=== PATIENT | female | born 1930 | race Two or more races ===

== ENCOUNTER 2017-05-14 12:06 | Inpatient (IN) | payer BC, MEDICAID ==
[~2017-05-14] VITALS: Ht 162.6 cm; Wt 72.1 kg
[~2017-05-14 12:06] MED LIST: AMIO200T2 PO; ASPI-991 PO; FLUT16SP16 NS; LISI10TA59 PO; METO25TA20 PO; Nitroglycerin TP; PANT40TA2 PO; Rivaroxaban PO; SIMV10TA6 PO
--- NOTE | 2017-05-14 12:15 | NUR ---
PT BIB [facility] FROM HOME, SUDDEN ONSET OF CP RADIATES TO BACK AND LEFT ARM AT 6/10. AAOX3. NOTED ANXIOUS. DTR AT BS FOR INFO. HR ELEVATED, OTHER VSS. SAFETY AND COMFORT MEASURES PROVIDED. SEEN BY MD FOR EVAL. WILL MONITOR.
[2017-05-14] MEDS ORDERED: DILTIAZEM HCL 25 MG IV ONE ×2 (12:22→12:46)
[2017-05-14 12:29] LABS: BASOPHILS % (AUTO) 0.7 % (0.0-2.0); EOSINOPHILS # (AUTO) 0.1 /CMM (0.0-0.7); EOSINOPHILS % (AUTO) 1.7 % (0.0-6.0); HEMATOCRIT 33 % (33-45); HEMOGLOBIN 11.2 g/dL (11.5-14.8); LYMPHOCYTES # (AUTO) 2.2 /CMM (0.8-4.8); LYMPHOCYTES % (AUTO) 31.4 % (20.0-44.0); MEAN CORPUSCULAR HEMOGLOBIN 28 PG (26.0-33.0); MEAN CORPUSCULAR HGB CONC 34 g/dl (31.0-36.0); MEAN CORPUSCULAR VOLUME 83 fL (82-100); MONOCYTES # (AUTO) 0.5 /CMM (0.1-1.30); MONOCYTES % (AUTO) 6.8 % (2.0-12.0); NEUTROPHILS # (AUTO) 4.1 /CMM (1.8-8.9); NEUTROPHILS % (AUTO) 59.4 % (43.0-81.0); PLATELET COUNT (AUTO) 266 /CMM (150-450); RDW COEFFICIENT OF VARIATION 15.2 (11.5-15.0); RED BLOOD CELL COUNT(AUTO) 3.98 MIL/uL (4.0-5.2); WHITE BLOOD COUNT (AUTO) 6.9 K/uL (4.3-11.0)
[2017-05-14] MEDS ORDERED: DILTIAZEM HCL 25 MG IV IV ONE ×2 (12:30→13:00)
--- NOTE | 2017-05-14 12:39 | NUR ---
PT MEDICATED ORDERED.
--- NOTE | 2017-05-14 12:39 | NUR ---
CXRAY DONE AT BS.
[2017-05-14 12:42] LABS: CALCIUM, SERUM 9.1 mg/dL (8.5-10.1); CARBON DIOXIDE 26 mmol/L (21-32); CHLORIDE 103 mmol/L (98-107); CREATININE 1.5 mg/dL (0.6-1.3); GLUCOSE 102 mg/dL (74-106); POTASSIUM 3.9 mmol/L (3.5-5.1); SODIUM SERUM 141 mmol/L (136-145); UREA NITROGEN, BLOOD 34 mg/dL (7-18)
[2017-05-14] MEDS ORDERED: THYR15TA PO (12:42)
[2017-05-14] MEDS ORDERED: SIMV10TA6 PO (12:42)
[2017-05-14] MEDS ORDERED: METO25TA6 PO (12:42)
[2017-05-14] MEDS ORDERED: FURO40TA5 PO (12:42)
[2017-05-14] MEDS ORDERED: LISI40TA4 PO (12:42)
[2017-05-14] MEDS ORDERED: AMIO200T2 PO (12:42)
[2017-05-14] MEDS ORDERED: HYDR-4076 PO (12:42)
[2017-05-14 12:48] LABS: ALANINE AMINOTRANSFERASE 18 U/L (12-78); ALBUMIN 3.3 g/dL (3.4-5.0); ALKALINE PHOSPHATASE 96 U/L (46-116); ASPARTATE AMINOTRANSFERASE 22 U/L (15-37); BILIRUBIN,DIRECT 0.1 mg/dL (0.0-0.2); BILIRUBIN,TOTAL 0.4 mg/dL (0.2-1.0)
[2017-05-14 12:50] LABS: PROTHROMBIN TIME 10.7 SECS (9.5-12.7); TROPONIN I 0.018 ng/mL (0.00-0.056)
--- NOTE | 2017-05-14 13:23 | NUR ---
REPORT GIVEN TO LINDA COLEMAN FOR TELE 104
[2017-05-14 13:30] VITALS: BP 129/66
--- NOTE | 2017-05-14 13:45 | NUR ---
RN NOTES ADMITTED A 86Y/O F FROM ER WITH DX OF CHEST PAIN. PT IS AWAKE ALERT ORIENTEDX3 ABLE TO COMMUNICATE NEEDS IN BULGARIAN. DAUGHTER AT BEDSIDE FOR TRANSLATION. PT ON RA KEREN WELL, TELEBOX ATTACHED, VS TAKEN AND RECORDED. BODYCHECK DONE NO MAJOR SKIN ISSUE NOTED. PT DENIES PAIN/DISCOMFORT AT THIS TIME. DENIES CHEST PAIN AT THIS TIME. ORIENTED PT TO UNIT AND CALL LIGHT USE. SAFETY MAINTAINED,NEEDS ATTENDED.CALL LIGHT WITHIN REACH.
--- NOTE | 2017-05-14 14:15 | NUR ---
RN NOTES FOLLOWEDUPWITH DR COOMBS ADMISSION ORDERS
[2017-05-14] MEDS ORDERED: Z GUARD REMEDY 2 OZ OINT TP PRN (15:00)
[2017-05-14] MEDS ORDERED: AMIODARONE HCL 200 MG TABLET PO SCH (15:00)
[2017-05-14] MEDS ORDERED: ACETAMINOPHEN 325 MG TABLET PO PRN (15:00)
[2017-05-14] MEDS ORDERED: ONDANSETRON HCL/PF 4 MG/2 ML VIAL IVP PRN (15:00)
[2017-05-14 16:00] VITALS: BP 145/65
[2017-05-14] MEDS ORDERED: IV SET PRIMARY PUMP SET 1 EA INFUS.SET MC ONE (17:19)
[2017-05-14] MEDS: IV NS 0.9% 1,000 ML IV PRN (17:28)
[2017-05-14] MEDS: FUROSEMIDE 40 MG TABLET PO SCH (17:28)
[2017-05-14] MEDS: METOPROLOL TARTRATE 25 MG TABLET PO SCH (17:29)
[2017-05-14] MEDS: AMIODARONE HCL 200 MG TABLET PO SCH (17:29)
[2017-05-14] MEDS: hydrALAZINE HCL 25 MG TABLET PO SCH (17:30)
[2017-05-14] MEDS: RIVAROXABAN 15 MG TABLET PO SCH (17:30)
--- NOTE | 2017-05-14 19:30 | NUR ---
TELERN FULLY AWAKE, TOGOLESE SPEAKING, FAMILY AT BEDSIDE VERY SUPPORTIVE. FAMILYS' CONCERNS REGARDING PATIENT S' INABLILITY TO SLEEP AT NIGHT. STATED WAS PRESCRIBED FORM ANOTHER HOSPITAL AMBIEN, WHICH DOES NOT HELP THE PATIENT SECONDARY TO ARTHRITIC PAIN? REVIEWED MED LIST WITH FAMILY APPEARS TO UNDERSTAND. REQUESTED TO ASK MD FOR STRONGER PAIN MED FOR PATIENT'S ARTHRITIC PAIN AND INSOMNIA. WILL CALL MD... WILL FOLLOW UP... REMAINS SR ON THE MONITOR, SAFETY PRECAUTIONS EMPHASIZED TRANSLATED IN TOGOLESE TO PATIENT. ENCOURAGED TO CALL FOR ANY ASSISTANCE OR DISCOMFORTS. CALL LIGHT WITHIN REACH.CONTINUED MONITORING. CLOSELY WATCHED.
[2017-05-14 20:00] VITALS: BP 105/53
[2017-05-14] MEDS ORDERED: HYDROCODONE/APAP 5/325MG 1 EACH TABLET PO PRN (21:30)
[2017-05-14] MEDS: SIMVASTATIN 10 MG TABLET PO SCH (22:15)
--- NOTE | 2017-05-14 22:17 | NUR ---
TELERN DUE MEDS GIVEN. OFFERED TYLENOL REFUSED TO TAKE ANY PAIN MED. STATED SHE IS NOT ON ANY TYPE OF PAIN, PER RE EXAMINER. WILL CALL IF IN PAIN. VOIDED, BRP WITH STANDBY ASSIST. PRESENT IVF INFUSING WELL.
[2017-05-15] VITALS (8 sets, daily range): BP systolic 120–174; BP diastolic 61–68
--- NOTE | 2017-05-15 04:15 | NUR ---
TELERN SLEPT WELL THROUGHOUT THE NIGHT. IVF CONTINUED. REMAINS SR ON THE MONITOR
--- NOTE | 2017-05-15 06:12 | NUR ---
TELERN ASSISTED TO RESTROOM, VOIDED FREELY. BED SCALE WEIGHT WAS 159.5 LBS.
[2017-05-15 06:59] LABS: BASOPHILS % (AUTO) 0.4 % (0.0-2.0); EOSINOPHILS # (AUTO) 0.2 /CMM (0.0-0.7); EOSINOPHILS % (AUTO) 2.7 % (0.0-6.0); HEMATOCRIT 33 % (33-45); HEMOGLOBIN 10.9 g/dL (11.5-14.8); LYMPHOCYTES # (AUTO) 1.9 /CMM (0.8-4.8); LYMPHOCYTES % (AUTO) 29.1 % (20.0-44.0); MEAN CORPUSCULAR HEMOGLOBIN 28 PG (26.0-33.0); MEAN CORPUSCULAR HGB CONC 33 g/dl (31.0-36.0); MEAN CORPUSCULAR VOLUME 85 fL (82-100); MONOCYTES # (AUTO) 0.4 /CMM (0.1-1.30); MONOCYTES % (AUTO) 6.5 % (2.0-12.0); NEUTROPHILS # (AUTO) 4.1 /CMM (1.8-8.9); NEUTROPHILS % (AUTO) 61.3 % (43.0-81.0); PLATELET COUNT (AUTO) 244 /CMM (150-450); RDW COEFFICIENT OF VARIATION 16.4 (11.5-15.0); RED BLOOD CELL COUNT(AUTO) 3.89 MIL/uL (4.0-5.2); WHITE BLOOD COUNT (AUTO) 6.7 K/uL (4.3-11.0)
--- NOTE | 2017-05-15 07:00 | NUR ---
RN NOTES: RECEIVED PATIENT IN BED AWAKE,ALERT AND ORIENTED VERBALLY ABLE TO COMMUNICATE NEED, FOLLOWS INSTRUCTION. ON O2 VIA NASAL CANNULA TOLERATING WELL. NO RESPIRATORY DISTRESS NOTED. BREATHING EVEN AND UNLABORED. NO COMPLAINT OF PAIN OR DISCOMFORT. BED IN LOW POSITION, WITH 2 HALF SIDE RAILS UP FOR MOBILITY AND REPOSITIONING.
[2017-05-15 07:24] LABS: ALANINE AMINOTRANSFERASE 17 U/L (12-78); ALBUMIN 2.9 g/dL (3.4-5.0); ALKALINE PHOSPHATASE 81 U/L (46-116); ASPARTATE AMINOTRANSFERASE 22 U/L (15-37); BILIRUBIN,TOTAL 0.4 mg/dL (0.2-1.0); CALCIUM, SERUM 8.7 mg/dL (8.5-10.1); CARBON DIOXIDE 31 mmol/L (21-32); CHLORIDE 107 mmol/L (98-107); CREATININE 1.3 mg/dL (0.6-1.3); GLUCOSE 84 mg/dL (74-106); MAGNESIUM 1.7 mg/dL (1.8-2.4); POTASSIUM 4.3 mmol/L (3.5-5.1); SODIUM SERUM 142 mmol/L (136-145); TOTAL PROTEIN, SERUM 6.5 g/dL (6.4-8.2); UREA NITROGEN, BLOOD 27 mg/dL (7-18)
[2017-05-15 07:29] LABS: CHOLESTEROL 128 mg/dL (<200); HDL CHOLESTEROL 33 mg/dL (40-60); LDL 65 mg/dL (0-99); THYROID STIMULATING HORMONE 6.125 uIU/mL (0.358-3.74); TRIGLYCERIDES 138 mg/dL (30-150)
[2017-05-15] MEDS: hydrALAZINE HCL 25 MG TABLET PO SCH ×2 (08:13→18:22)
[2017-05-15] MEDS: FUROSEMIDE 40 MG TABLET PO SCH ×2 (08:13→18:23)
[2017-05-15] MEDS: LISINOPRIL (20MG) 20 MG TABLET PO SCH (08:13)
[2017-05-15] MEDS: AMIODARONE HCL 200 MG TABLET PO SCH ×3 (08:14→17:00)
[2017-05-15] MEDS: METOPROLOL TARTRATE 25 MG TABLET PO SCH ×2 (08:14→17:00)
[2017-05-15] MEDS: IV NS 0.9% 1,000 ML IV PRN (08:15)
[2017-05-15] MEDS ORDERED: SECONDARY IV SET 1 EA INFUS.SET MC ONE (12:43)
[2017-05-15] MEDS: Magnesium 1GM/D5W 100ML PREMIX 100 ML IV SCH ×2 (12:52→14:08)
[2017-05-15] MEDS: RIVAROXABAN 15 MG TABLET PO SCH (18:27)
[2017-05-15] MEDS: SIMVASTATIN 10 MG TABLET PO SCH (21:16)
[2017-05-16] VITALS: BP 137/72
[2017-05-16] MEDS: IV NS 0.9% 1,000 ML IV PRN (01:45)
[2017-05-16 04:00] VITALS: BP 140/72
[2017-05-16 04:33] VITALS: BP 140/72
[2017-05-16 07:24] LABS: BASOPHILS % (AUTO) 0.4 % (0.0-2.0); EOSINOPHILS # (AUTO) 0.2 /CMM (0.0-0.7); EOSINOPHILS % (AUTO) 3.1 % (0.0-6.0); HEMATOCRIT 33 % (33-45); LYMPHOCYTES # (AUTO) 1.7 /CMM (0.8-4.8); LYMPHOCYTES % (AUTO) 27.6 % (20.0-44.0); MEAN CORPUSCULAR HEMOGLOBIN 28 PG (26.0-33.0); MEAN CORPUSCULAR HGB CONC 33 g/dl (31.0-36.0); MEAN CORPUSCULAR VOLUME 85 fL (82-100); MONOCYTES # (AUTO) 0.4 /CMM (0.1-1.30); MONOCYTES % (AUTO) 6.6 % (2.0-12.0); NEUTROPHILS # (AUTO) 3.8 /CMM (1.8-8.9); NEUTROPHILS % (AUTO) 62.3 % (43.0-81.0); PLATELET COUNT (AUTO) 237 /CMM (150-450); RED BLOOD CELL COUNT(AUTO) 3.91 MIL/uL (4.0-5.2); WHITE BLOOD COUNT (AUTO) 6.2 K/uL (4.3-11.0)
[2017-05-16 07:57] LABS: TROPONIN I 0.031 ng/mL (0.00-0.056)
[2017-05-16 08:00] VITALS: BP_SYST 155; BP_SYST 158; BP_DIAS 63; BP_DIAS 70
[2017-05-16 08:02] LABS: ALANINE AMINOTRANSFERASE 19 U/L (12-78); ALBUMIN 2.8 g/dL (3.4-5.0); ALKALINE PHOSPHATASE 87 U/L (46-116); ASPARTATE AMINOTRANSFERASE 27 U/L (15-37); BILIRUBIN,TOTAL 0.5 mg/dL (0.2-1.0); CALCIUM, SERUM 8.5 mg/dL (8.5-10.1); CARBON DIOXIDE 29 mmol/L (21-32); CHLORIDE 106 mmol/L (98-107); CREATININE 1.3 mg/dL (0.6-1.3); GLUCOSE 93 mg/dL (74-106); MAGNESIUM 1.8 mg/dL (1.8-2.4); PHOSPHORUS 3.7 mg/dL (2.5-4.9); SODIUM SERUM 142 mmol/L (136-145); TOTAL PROTEIN, SERUM 6.5 g/dL (6.4-8.2); UREA NITROGEN, BLOOD 24 mg/dL (7-18)
[2017-05-16] MEDS: hydrALAZINE HCL 25 MG TABLET PO SCH (08:46)
[2017-05-16] MEDS: FUROSEMIDE 40 MG TABLET PO SCH (08:46)
[2017-05-16] MEDS: METOPROLOL TARTRATE 25 MG TABLET PO SCH (08:48)
[2017-05-16] MEDS: LISINOPRIL (20MG) 20 MG TABLET PO SCH (08:48)
[2017-05-16] MEDS: AMIODARONE HCL 200 MG TABLET PO SCH ×2 (08:49→12:24)
[2017-05-16 12:24] VITALS: BP 137/66
--- NOTE | 2017-05-16 14:00 | NUR ---
RN NOTE PT DISCHARGED HOME IN STABLE CONDITION, WITH DAUGHTER JAMIN, DISCHARGE INSTRUCTIONS GIVEN TO DAUGHTER AND PT, PRESCRIPTION PROVIDED, EXIT CARE DONE, IV AND ID BAND REMOVED, BELONGINGS LIST SIGNED AND BELONGINGS ARE GIVEN TO PT. PT REFUSED FWW BECAUSE SHE NEEDS FOUR WHEEL WALKER WITH SEAT.
[2017-05-18] MEDS ORDERED: AMIODARONE HCL 200 MG TABLET PO SCH (09:00)
[2017-05-21] MEDS ORDERED: AMIODARONE HCL 200 MG TABLET PO SCH (09:00)
[2017-05-24] MEDS ORDERED: AMIODARONE HCL 200 MG TABLET PO SCH (09:00)
== END 2017-05-16 14:00 | disposition home or self-care (01) | DRG 201 ==
LOC: ER 12:07 → TELE1 13:04 → MEDSG1 05-16 09:51
PROVIDERS: ADMIT Nurse Practitioner Acute Care; ATTEND Nurse Practitioner Acute Care
DX: I48.0 Paroxysmal atrial fibrillation (principal); N17.0 Acute kidney failure with tubular necrosis; I21.4 Non-ST elevation (NSTEMI) myocardial infarction; D68.59 Other primary thrombophilia; E83.42 Hypomagnesemia; E11.9 Type 2 diabetes mellitus without complications; E03.9 Hypothyroidism, unspecified; E78.5 Hyperlipidemia, unspecified; I10 Essential (primary) hypertension; K21.9 Gastro-esophageal reflux disease without esophagitis; Z79.01 Long term (current) use of anticoagulants; Z90.49 Acquired absence of other specified parts of digestive tract; Z96.659 Presence of unspecified artificial knee joint; R07.9 Chest pain, unspecified
CPT/HCPCS: 36415; 71010-TC; 80048-TC; 80053-TC; 80061-TC; 80076-TC; 82728-TC; 83540-TC; 83735-TC; 84100-TC; 84439-TC; 84443-TC; 84484-TC; 85025-TC; 85730-TC; 87081-TC; 93307-TC; 97001-TC; A4606; A6407; J3475; J3490; J7030; Z7610

== ENCOUNTER 2018-05-17 23:49 | Emergency (ER) | payer BC, OTHER ==
[~2018-05-17] VITALS: Ht 165.1 cm; Wt 65.8 kg
[~2018-05-17 23:49] MED LIST changes: -AMIO200T2 PO; +AMIO200T4 PO; -ASPI-991 PO; -FLUT16SP16 NS; +FURO40TA5 PO; +HYDR-4076 PO; -LISI10TA59 PO; +LISI40TA4 PO; -METO25TA20 PO; +METO25TA6 PO; -Nitroglycerin TP; -PANT40TA2 PO; -Rivaroxaban PO; +THYR15TA PO
--- NOTE | 2018-05-17 23:49 | NUR ---
BIBFAMILY C/O L KNEE PAIN, DENIES FALL/TRAUMA X 5 DAYS. VSS NAD WILL CONTINUE TO MONITOR FOR ANY CHANGES DURING THE SHIFT.
--- NOTE | 2018-05-17 23:50 | NUR ---
ER MD BENTLEY AT BEDSIDE
[2018-05-18] MEDS ORDERED: ACETAMINOPHEN W/ CODEINE#3 1 EA TABLET ONE (01:00)
[2018-05-18] MEDS ORDERED: ACETAMINOPHEN W/ CODEINE#3 1 EA TABLET PO ONE (01:00)
--- NOTE | 2018-05-18 01:03 | NUR ---
SNOW PLOW OPERATOR AT BEDSIDE
[2018-05-18 03:38] VITALS: BP 159/84
== END 2018-05-18 03:38 | disposition home or self-care (01) ==
LOC: ER 23:52
DX: M25.562 Pain in left knee (principal); M17.9 Osteoarthritis of knee, unspecified; E78.00 Pure hypercholesterolemia, unspecified; E05.90 Thyrotoxicosis, unspecified without thyrotoxic crisis or storm; I11.0 Hypertensive heart disease with heart failure; I50.9 Heart failure, unspecified; I48.91 Unspecified atrial fibrillation; Z98.890 Other specified postprocedural states
CPT/HCPCS: 73560-TC; A4606; Z7610

== ENCOUNTER 2019-07-17 00:21 | Emergency (ER) | payer MEDICAID ==
[~2019-07-17] VITALS: Ht 167.6 cm; Wt 63.5 kg
[~2019-07-17 00:21] MED LIST changes: +FERR325T23 PO; +RIVA10TA PO; +SOTA80TA PO
--- NOTE | 2019-07-17 01:00 | NUR ---
BIB FAMILY FOR C/O ABD PAIN . PT W/ PMH OF HERNIA.
[2019-07-17] MEDS ORDERED: ONDANSETRON HCL/PF 4 MG/2 ML VIAL ONE (01:12)
[2019-07-17] MEDS ORDERED: HYDROMORPHONE 1 MG/1 ML DISP.SYRIN ONE (01:13)
[2019-07-17 01:17] LABS: BASOPHILS # (AUTO) 0.1 /CMM (0.0-0.2); BASOPHILS % (AUTO) 0.9 % (0.0-2.0); EOSINOPHILS % (AUTO) 1.2 % (0.0-6.0); HEMATOCRIT 39 % (33-45); LYMPHOCYTES # (AUTO) 1.3 /CMM (0.8-4.8); LYMPHOCYTES % (AUTO) 16.4 % (20.0-44.0); MEAN CORPUSCULAR HGB CONC 33 g/dl (31.0-36.0); MEAN CORPUSCULAR VOLUME 89 fL (82-100); MONOCYTES # (AUTO) 0.4 /CMM (0.1-1.30); MONOCYTES % (AUTO) 5.6 % (2.0-12.0); NEUTROPHILS # (AUTO) 6.1 /CMM (1.8-8.9); NEUTROPHILS % (AUTO) 75.9 % (43.0-81.0); PLATELET COUNT (AUTO) 241 /CMM (150-450); RED BLOOD CELL COUNT(AUTO) 4.42 MIL/uL (4.0-5.2)
[2019-07-17 01:26] LABS: CALCIUM, SERUM 9.4 mg/dL (8.5-10.1); CARBON DIOXIDE 28 mmol/L (21-32); CHLORIDE 103 mmol/L (98-107); CREATININE 1.1 mg/dL (0.6-1.3); GLUCOSE 106 mg/dL (74-106); POTASSIUM 3.8 mmol/L (3.5-5.1); SODIUM SERUM 140 mmol/L (136-145); UREA NITROGEN, BLOOD 17 mg/dL (7-18)
[2019-07-17] MEDS ORDERED: IV NS 0.9% 250 ML IV ONE (01:29)
[2019-07-17] MEDS ORDERED: IOHEXOL-300 100 ML VIAL IV ONE (01:29)
[2019-07-17] MEDS ORDERED: HYDROMORPHONE INJ 2 MG/ML DISP.SYRIN IV ONE (01:30)
[2019-07-17] MEDS ORDERED: ONDANSETRON HCL/PF 4 MG/2 ML VIAL IVP ONE (01:30)
[2019-07-17] MEDS ORDERED: IV NS 0.9% 500 ML BAG IV ONE (01:30)
[2019-07-17 01:32] LABS: ALANINE AMINOTRANSFERASE 26 U/L (12-78); ALBUMIN 3.8 g/dL (3.4-5.0); ALKALINE PHOSPHATASE 118 U/L (46-116); ASPARTATE AMINOTRANSFERASE 30 U/L (15-37); BILIRUBIN,DIRECT 0.2 mg/dL (0.0-0.2); BILIRUBIN,TOTAL 0.8 mg/dL (0.2-1.0); LIPASE 211 U/L (73-393); TOTAL PROTEIN, SERUM 7.7 g/dL (6.4-8.2)
--- NOTE | 2019-07-17 01:34 | NUR ---
HERNIA REDUCTION WAS PROVIDED BY DR SHELBY AT THE BED SIDE . PT TOLERATE THE PROCEDURE WELL.
--- NOTE | 2019-07-17 03:19 | NUR ---
IV removed. Catheter intact and site benign. Pressure and 4x4 applied to site. No bleeding noted. Patient/ family does not wish to proceed with medical care recommended by Dr. Daniel Morales. Patient given information related to possible complications, up to and including , which could occur as a result of leaving the hospital at this time. Patient and the dtr verbalized understanding of risks involved due to leaving against medical advice. daughter has signed AMA form.
--- NOTE | 2019-07-17 03:23 | NUR ---
pt / family were provided w/ a copy of all lab and CT results and encouraged to seek medical assistance,
[2019-07-17 03:25] VITALS: BP 154/87
== END 2019-07-17 03:29 | disposition left against medical advice (07) ==
LOC: ER 00:26
DX: K43.6 Other and unspecified ventral hernia with obstruction, without gangrene (principal); K56.609 Unspecified intestinal obstruction, unspecified as to partial versus complete obstruction; I11.0 Hypertensive heart disease with heart failure; I50.32 Chronic diastolic (congestive) heart failure; R94.31 Abnormal electrocardiogram [ECG] [EKG]; E78.00 Pure hypercholesterolemia, unspecified; D64.9 Anemia, unspecified; E05.90 Thyrotoxicosis, unspecified without thyrotoxic crisis or storm; Z90.710 Acquired absence of both cervix and uterus; Z90.49 Acquired absence of other specified parts of digestive tract; Z98.890 Other specified postprocedural states; Z79.899 Other long term (current) drug therapy
CPT/HCPCS: 36415; 71045; 74177; 80048; 80076; 83690; 84484; 85025; 85730; 93005; 96374; 96375; 99284; J1170; J2405; J7040; J7050; Q9967